=== PATIENT | male | born 1990 | race Caucasian/White ===

== ENCOUNTER 2023-08-10 08:33 | Emergency (ER) | payer MEDICAID ==
[~2023-08-10] VITALS: Ht 172.7 cm; Wt 80.0 kg
[2023-08-10 08:42] VITALS: O2SAT 100
[2023-08-10] MEDS ORDERED: FLUORESCEIN SODIUM 1MG/STRIP LEFTEYE ONE (09:00)
[2023-08-10] MEDS ORDERED: TETRACAINE 0.5% OPHTH DROPS 4ML LEFTEYE ONE (09:00)
[2023-08-10] MEDS ORDERED: BALANCED SALT IRRIG SOLN 15ML IR ONE (09:00)
[2023-08-10] MEDS ORDERED: ERYT1OIN6 LEFTEYE (09:58)
[2023-08-10 11:01] VITALS: BP 123/68; PULSE 66; RESP 16; TEMP 98.1
== END 2023-08-10 11:01 | disposition home or self-care (01) ==
LOC: ER 08:33
DX: T15.02XA Foreign body in cornea, left eye, initial encounter (principal)
CPT/HCPCS: 65220; 99284; Z7610 ×2; C1893; 99283